=== PATIENT | female | born 1940 | race Caucasian/White ===

== ENCOUNTER → 2022-02-03 09:08 | Outpatient (BNVA) | payer MEDICARE, OTHER, SELFPAY | PROVIDERS: Family Provider Family Medicine; PCP Family Medicine; Visit Provider Nurse Practitioner Family | DX: M17.12 Unilateral primary osteoarthritis, left knee (principal); M25.562 Pain in left knee | CPT/HCPCS: 73562 ==

== ENCOUNTER → 2022-04-27 11:48 | Outpatient (BNVA) | payer BC, SELFPAY | PROVIDERS: Family Provider Family Medicine; PCP Family Medicine; Referring Provider Nurse Practitioner Family; Visit Provider Specialist | DX: M25.562 Pain in left knee (principal) | CPT/HCPCS: 73560; 73565 ==

== ENCOUNTER → 2022-05-25 12:04 | Day surgery (SDC) | payer MEDICARE, SELFPAY | PROVIDERS: PCP Nurse Practitioner Family; Visit Provider Specialist | DX: R01.1 Cardiac murmur, unspecified (principal) | CPT/HCPCS: 87077; 87086; 87186; 93005 ==

== ENCOUNTER 2022-05-27 10:48 | Outpatient (CLI) | payer MEDICARE, SELFPAY ==
--- NOTE | 2022-05-27 11:00 | USCV_ITS ---
Marsha Velazquez Age: 81 Gender: F : 1940 Exam Date: 05/27/2022 11:07 Ordering Phys: Palma Medina DO Technologist: Tammy Dias Exam Location: [facility] [place] Indication: possible systolic murmur BP: 132 / 78 HR: 88 Rhythm: Sinus Technical Quality: Adequate MEASUREMENTS (Male / Female) Normal Values 2D ECHO LV Diastolic Diameter PLAX 3.8 cm 4.2 - 5.9 / 3.9 - 5.3 cm LV Systolic Diameter PLAX 2.7 cm IVS Diastolic Thickness 1.5 cm 0.6 - 1.0 / 0.6 - 0.9 cm IVS Systolic Thickness 1.4 cm LVPW Diastolic Thickness 1.1 cm 0.6 - 1.0 / 0.6 - 0.9 cm LVPW Systolic Thickness 2.0 cm LV Ejection Fraction 2D Teich 55.6 % LV Ejection Fraction MOD 2C 81.3 % LV Ejection Fraction 2C AL 82.3 % LA Diameter 2.4 cm LA Width 4.1 cm LA Height 4.6 cm RA Width 2.4 cm RA Height 4.0 cm Aorta at Sinotubular Diameter 3.7 cm IVC Diameter 1.8 cm DOPPLER AV Peak Velocity 336.6 cm/s LVOT Peak Velocity 102.0 cm/s MV Peak Velocity 130.0 cm/s MV Area PHT 2.5 cm squared Mitral E to A Ratio 0.7 MV E' Velocity 47.0 cm/s Mitral E to MV E' Ratio 12.8 Mitral E to LV E' Lateral Ratio 9.5 Mitral E to LV E' Septal Ratio 19.7 TR Peak Velocity 221.3 cm/s TR Peak Gradient 19.6 mmHg Right Atrial Pressure 3.0 mmHg Pulmonary Artery Systolic Pressu 22.6 mmHg PV Peak Velocity 77.0 cm/s RV Acceleration Time 0.1 s FINDINGS Left Ventricle Normal left ventricular size and systolic function, EF 78 %. Moderate left ventricular hypertrophy. No regional wall motion abnormalities. Grade I/IV diastolic dysfunction (abnormal relaxation filling pattern), normal to mildly elevated filling pressures. Grade I/IV diastolic dysfunction (abnormal relaxation filling pattern), normal to mildly elevated filling pressures. Right Ventricle The right ventricle is normal in size and function. Right Atrium The right atrium is normal in size. Left Atrium Mildly increased left atrial size. Mitral Valve Trace to mild mitral valve regurgitation. Aortic Valve Mild aortic valve regurgitation. Peak velocity of 3.71 m/s with a peak gradient of 55 and a mean gradient of 28 mmHg Tricuspid Valve Mild tricuspid valve regurgitation. Pulmonic Valve Pulmonic valve not well visualized. Pericardium Normal pericardium without effusion. Aorta Normal ascending aorta dimension. IVC The inferior vena cava pulmonary and hepatic veins appear normal. CONCLUSIONS Normal left ventricular size and systolic function, EF 78 %. Moderate left ventricular hypertrophy. No regional wall motion abnormalities. Grade I/IV diastolic dysfunction (abnormal relaxation filling pattern), normal to mildly elevated filling pressures. Possibly moderate aortic valve stenosis(Peak velocity of 3.71 m/s with a peak gradient of 55 and a mean gradient of 28 mmHg.) Aortic valve area was calculated to be--- Mild aortic valve regurgitation. Mild tricuspid valve regurgitation. Trace to mild mitral valve regurgitation. There is no pericardial effusion. There are no intracardiac masses. The aortic valve area was not calculated. The Doppler study of the aortic valve needs to be repeated Dr Uzair Krueger MD FACC (Electronically Signed) Final Date: 29 May 2022 16:17 S
== END 2022-05-27 10:49 | disposition home or self-care (01) ==
LOC: RAD 10:48
PROVIDERS: PCP Nurse Practitioner Family; Visit Provider Anesthesiology
DX: R01.1 Cardiac murmur, unspecified (principal); I08.3 Combined rheumatic disorders of mitral, aortic and tricuspid valves
CPT/HCPCS: 93306

== ENCOUNTER 2022-06-02 15:43 | Observation (INO) | payer MEDICARE, SELFPAY ==
[2022-05-25 11:59] VITALS: BMI 26.9
--- NOTE | 2022-05-25 12:04 | ECG_ITS ---
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 Measurements Intervals [place] Rate: 73 P: 3 MS: 193 QRS: -9 QRSD: 107 T: 48 QT: 361 QTc: 398 Interpretive Statements SINUS RHYTHM INCOMPLETE RIGHT BUNDLE BRANCH BLOCK [90+ ms QRS DURATION, TERMINAL R IN V1/V2, 40+ ms S IN I/aVL/V4/V5/V6] No previous ECG available for comparison Electronically Signed On 05-25-2022 18:23:32 CDT by Jeff Zimmer M.D. [email or web address] unit[id number]
[2022-05-25 12:43] LABS: Basophils # 0.1 10^3/uL (0.0-0.1); Basophils % 0.9 %; Eosinophils # 0.2 10^3/uL (0.0-0.8); Eosinophils % 3.3 %; Hematocrit 34.4 % (37.0-47.0); Hemoglobin 11.7 g/dL (11.5-15.3); Lymphocytes # 1.5 10^3/uL (0.8-4.8); Lymphocytes % 27.5 %; Mean Corpuscular Hemoglobin 30.9 pg (28.0-34.0); Mean Corpuscular Volume 90.8 fl (81-99); Mean Platelet Volume 9.6 fL (7.4-10.4); Monocytes # 0.5 10^3/uL (0.2-0.9); Monocytes % 9.8 %; Neutrophils # 3.23 10^3/uL (1.8-7.7); Neutrophils % 58.3 %; Nucleated Red Blood Cells % 0 %; Platelet Count 221 10^3/cmm (130-400); Red Blood Count 3.79 10^6/uL (4.1-5.3); Red Cell Distribution Width 12.7 % (12.1-15.1); White Blood Count 5.5 10^3/uL (4.0-10.0)
[2022-05-25 13:31] LABS: Blood Urea Nitrogen 21 mg/dL (8-23); Calcium 9.3 mg/dL (8.5-10.5); Carbon Dioxide 26 mmol/L (22-29); Chloride 100 mmol/L (98-107); Creatinine Clr Calc Pharmacy 52.7142; Glucose 88 mg/dL (65-115); Osmolality Calculated 288 mOsm/kg (285-295); Sodium 138 mmol/L (136-145)
[2022-05-25 14:23] LABS: Add Urine Microscopic? YES; Bilirubin Urine Neg (Negative); Blood Urine Neg (Negative); Glucose Urine UA Norm (Normal); Ketones Urine Negative (Negative); Leukocyte Esterase Urine 1+ (Negative); Nitrate Urine Positive (Negative); Protein Urine Neg (Negative); Urine Appearance Clear (CLEAR); Urine Color Yellow (Yellow); Urobilinogen Urine Norm (Negative); pH Urine 6 (5-7)
[2022-05-25 14:24] LABS: Add Urine Culture? Yes; Bacteria Urine 3+ /hpf; Squamous Epithelial Cell Urine 0-4 /hpf (0-5)
--- NOTE | 2022-05-25 15:26 | SUR.PREOP ---
[id number] message left on rohit's phone with dr tee's office regarding pt's urinalysis results, positive for nitrates and bacteria
--- NOTE | 2022-05-25 16:14 | P.ANESASSM_ITS ---
Pre-Anesthetic Assessment Height/Weight: Height 1.68 m Weight 75.75 kg Preop Diagnosis: end stage OA Operation Date: 06/02/22 07:00 Proposed Procedures p Left Total Knee Arthroplasty 32098,M17.10(Left) - Roxana Arambula MD Familial anesthetic complications: PONV Was Beta Stacy taken within 24 hours: N/A Was Clonidine taken within 24 hours: N/A Social No alcohol and No tobacco Exam alert, oriented x 3, clear to auscultation bilaterally and regular rate & rhythm systolic ejection murmur Airway Submandibular: within normal limits Cervical ROM: Other (limited ) Mallampati: Class II Dentition: false History/ROS No significant complaints Pulmonary Sleep Apnea CV/HEM Hypertension METS > 4 Patient denies CAD, CHF and does have known murmur but patient does not etiology Denies hx of syncope or CHACKO None reported Hepatic None reported GI Gastroesophageal Reflux Disease Metabolic None reported Musc/skel None reported Neuropsych None reported Anesthetic Plan ASA status: 2 Anesthesia: Anesthesia Evaluation, Eval. for regional block (Spinal ), General and Regional (specify below) (Adductor canal block ) Other: We discussed risk and benefits of general vs spinal anesthesia including DVT risk, infection, paralysis/catastrophic nerve injury, back bruising/pain, PDPH, conversion to general in case of spinal, PONV, sore throat (sometimes severe), corneal abrasion, positioning and peripheral nerve injuries, life threatening allergic reaction, post operative ICU admission requiring prolonged intubation, stroke, heart attack, , post operative delirium and/or post operative cognitive decline, and rare incidences of recall (under general anesthesia). We discussed risk and benefits of nerve block for post op pain control including management of pain and titration of pain medications as signs/symptoms of nerve block wearing off begin to appear and/or prior bed. We discussed risk of failed nerve block, vascular injury or other vital structure injury, abscess/infection, LAST, and nerve injury. Ordered pre op echocardiogram, possible cardiology evaluation depending on TTE results (consult ordered) Patient consents to general or spinal (prefers spinal given her hx of PONV) pending TTE results. Patient would like adductor canal block . Risk of > 500 ml blood loss (7ml/kg in children): No Medications/Allergies Home Medications Medication Instructions Recorded Confirmed Last Taken Type lisinopril 20 1 tab PO DAILY 04/27/22 05/25/22 Unknown History mg-hydrochlorothiazide 25 mg tablet nitrofurantoin 100 mg PO Q12H 7 Days #14 cap 05/25/22 Unknown Rx monohydrate/macrocrystals 100 mg capsule (Macrobid) Allergies Allergy/AdvReac Type Severity Reaction Status Date / Time Sulfa (Sulfonamide Allergy rash Verified 05/25/22 08:12 Antibiotics) PFSH Anesthesia Social History Smoking and tobacco status: never smoked Alcohol intake: never Data Anesthesia : 05/25/22 12:20 05/25/22 12:20 Short CBC 05/25/22 Range/Units 12:20 WBC 5.5 (4.0-10.0) 10^3/uL Hgb 11.7 (11.5-15.3) g/dL Hct 34.4 L (37.0-47.0) % MCV 90.8 (81-99) fl Plt Count 221 (130-400) 10^3/cmm Neut % (Auto) 58.3 % Neut # (Auto) 3.23 (1.8-7.7) 10^3/uL BMP 05/25/22 12:20 Sodium 138 Potassium 4.0 Chloride 100 Carbon Dioxide 26 BUN 21 Creatinine 0.9 Glucose 88 Calcium 9.3 Urine 05/25/22 Range/Units 12:10 Urine Color Yellow (Yellow) Urine Appearance Clear (CLEAR) Urine pH 6 (5-7) Ur Specific [place] 1.010 (1.005-1.030) Urine Protein Neg (Negative) Urine Glucose (UA) Norm (Normal) Urine Ketones Negative (Negative) Urine Nitrate Positive H (Negative) Urine Bilirubin Neg (Negative) Ur Leukocyte Esterase 1+ H (Negative) Urine RBC None (0-2) /hpf Urine WBC 5-10 H (0-5) /hpf Cardiac Studies: No Data to Display
[2022-06-02] VITALS (23 sets, daily range): BP systolic 68–162; BP diastolic 58–97; PULSE 56–84; RESP 12–21; TEMP 36.1–37.2; O2SAT 93–100
--- NOTE | 2022-06-02 10:44 | P.ANESUD_ITS ---
Pre-Anesthetic Update Pre-Anesthetic Assessment: Date of Surgery/Procedure: 06/02/22 Preop Iona gnosis: Primary osteoarthritis left knee Proposed Procedure: Operation Date: 06/02/22 11:30 Proposed Procedures p Left Total Knee Arthroplasty 75134,M17.10(Left) - Roxana Arambula MD Any changes to Pre-Anesthetic Assessment?: No Last Intake: Intake Last Liquid Date 06/01/22 Last Liquid Time 19:30 Last Solid Date 06/01/22 Last Solid Time 19:30 Vitals: Temperature 98.9 F 06/02/22 10:20 Temperature Source Temporal Artery S can 06/02/22 10:20 Pulse Rate 81 06/02/22 10:20 Pulse Rhythm 06/02/22 10:21 Pulse Strength 3+ Normal 06/02/22 10:21 Respiratory Rate 18 06/02/22 10:20 Blood Pressure 162/68 06/02/22 10:20 Blood Pressure Marilin n 99 06/02/22 10:20 Pulse Oximetry 95 06/02/22 10:20 Oxygen Delivery Me thod 06/02/22 10:21 Exam: Pre-Anes Outpt Exam: alert, oriented x 3, clear to auscultation bilaterally and regular rate & rhythm Cardiac Studies: Echocardiogram 05/27/22
[2022-06-02] MEDS: sodium chloride 0.9% 1,000 ML 30 ML IV (11:02)
[2022-06-02] MEDS: acetaminophen 1,000 MG/100 ML PIGGYBACK 400 MG IV ×2 (11:03→17:47)
[2022-06-02] MEDS: CELEcoxib 200 mg Capsule 400 MG PO (11:17)
[2022-06-02 11:22] LABS: Add Urine Culture? Yes; Add Urine Microscopic? YES; Bacteria Urine 1+ /hpf; Bilirubin Urine Neg (Negative); Blood Urine Neg (Negative); Glucose Urine UA Norm (Normal); Ketones Urine Negative (Negative); Leukocyte Esterase Urine 2+ (Negative); Nitrate Urine Negative (Negative); Protein Urine Neg (Negative); RBC Urine 0-4 /hpf (0-2); Squamous Epithelial Cell Urine 0-4 /hpf (0-5); Urine Appearance Clear (CLEAR); Urine Color Yellow (Yellow); Urobilinogen Urine Norm (Negative); pH Urine 7 (5-7)
--- NOTE | 2022-06-02 12:01 | P.HPUD_ITS ---
Surgery/Procedure H&P Update DATE OF PROCEDURE: June 02, 2022 DATE H&P PERFORMED: 05/25/22 H&P UPDATE INFORMATION: I have reviewed H&P completed within last 30 days, I have examined patient prior to procedure, No changes to prior documentation and H&[place] is [place] [facility] [place] date indicated PREOP DIAGNOSIS: Primary osteoarthritis left knee PLANNED PROCEDURE: Operation Date: 06/02/22 11:30 Proposed Procedures p Left Total Knee Arthroplasty 16645,M17.10(Left) - Roxana Arambula MD Related Problem List Diagnoses (1) Primary osteoarthritis of left knee: (2) Valgus deformity, not elsewhere classified, left knee:
[2022-06-02] MEDS: ceFAZolin 2,000 MG in sodium chloride 0.9% (plus) 50 ML 100 MG IV ×2 (12:04→20:04)
--- NOTE | 2022-06-02 12:49 | ANES.PROC ---
Anesthesia Procedures Procedure/Date: 06/02/22 Nerve Block ^: Nerve Block 1: Main Anesthesia: spinal anesthesia block Time Out Performed: Yes Consent: requested by attending/covering physician, from patient, risks and benefits reviewed and patient agrees to proceed Nerve block location: adductor canal (left) Anesthesia monitors applied: pulse oximetry, EKG, BP cuff and oxygen Nerve block position: supine Anesthetic Used: ropivicaine 0.5% Amount of anesthesia used (mL): 20 Ultrasound used to: recognize landmarks Nerve Stimulator Used?: No Interscalene/Femoral BLK: 4 stimuplex 21 g needle used for position and inplane approach Injection: neg aspiration of heme Patient Tolerated Procedure: well Complications: none
[2022-06-02] MEDS: ceFAZolin 1,000 mg SDV 1000 MG IRRIGATION ×2 (13:04)
[2022-06-02] MEDS: vancomycin 1,000 MG SDV 1000 MG XX (13:05)
[2022-06-02] MEDS: tranexamic acid 1,000 mg/10mL SDV 1000 MG IV (14:12)
--- NOTE | 2022-06-02 14:50 | XRR_ITS ---
PROCEDURE INFORMATION: Exam: XR Left Knee Exam date and time: 06/02/2022 3:06 PM Age: 81 years old Clinical indication: Device placement; Joint replacement hardware; Prior surgery; Surgery date: Post-operative (0-2 days); Surgery type: Status post left total knee arthroplasty TECHNIQUE: Imaging protocol: Radiologic exam of the Left knee. Views: 1 or 2 views. COMPARISON: CR (KNEE AP, KNEE, KNEE AP) 04/27/2022 11:53 AM FINDINGS: Bones/joints: Sequela of recently placed left total knee arthroplasty in expected positioning. Soft tissues: Soft tissue swelling and gas along with surgical humphrey along the anterior knee consistent with recent surgical procedure. XR/XR knee LT 1-2V 99514 IMPRESSION: Sequela of recently placed left total knee arthroplasty in expected positioning.
--- NOTE | 2022-06-02 15:16 | PM.OP ---
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 Procedure done: Left total knee arthroplasty Implants: The Renée total knee system with a size 4 triathlon beaded posterior stabilized femur left, a triathlon titanium tibial component size 5 beaded, a triathlon X3 posterior stabilized tibial bearing insert size 5 X 13 mm and a beaded triathlon titanium asymmetric patella size 32 x 10 mm Pathology: none sent Surgeon: Roxana Arambula Electron Microprobe Operator: [facility] operating room technicians Anesthesia: MAC (With spinal, ASA 2) Estimated blood loss (mL): 25 Tourniquet time (min): 103 (At 250 mmHg) IV fluids (mL): 800 Urine output (mL): 150 Complications: None Findings: Severe valgus deformity with lateral bone loss along the lateral tibial plateau. Complete denudement of cartilage. Condition: stable Disposition: PACU (Then to floor for postoperative rehabilitation and pain management) Brief History: Patient presents today for same-day surgery in the form of left total knee arthroplasty to address her chronic left knee pain with severe valgus deformity. Patient states that her pain has been present for approximately one year. She denies any injury. Patient rates pain 8/10. She says that the pain is steadily getting worse. Patient could not describe what kind of pain they have. She is excited to discuss plans for left total knee arthroplasty.? Surgery date is June 02. Patient claims knee is painful all the time, but it is most painful during the night when she is laying down. Patient says that it is hard to turn her leg in a way that is comfortable to sleep. She says that the pain radiates down the leg. Patient uses aspercreme spray to ease the pain and says it does help, but she is wanting more relief.? Procedure: The patient was brought to the operating theater, and after undergoing adequate spinal anesthesia supplemented with adductor canal block and MAC, ASA 2, the left lower extremity was prepped with Dura-Prep and draped in usual fashion following placement of a tourniquet high on the leg. The leg was then draped free. Following prepping and draping, the leg was exsanguinated, and the tourniquet was elevated to 250 mmHg for a total tourniquet time of 103 minutes.? Prior to elevation of the tourniquet, but following exposure of the site of surgery, a surgical pause was performed. At the time of the surgical pause, we confirmed the site and side of surgery. Additionally, we confirmed the appropriate and timely administration of preoperative antibiotics, Ancef 2 g and Transexemic acid 1 g.? The availability of equipment was confirmed, and the patient's identity was verbalized as well.? An additional transexemic acid 1 g was given at the end of the surgical procedure as well Following the surgical pause, an incision was made centering over the patella continuing proximally and distally as necessary to allow access to the knee joint. Dissection continued through skin and soft tissues using a scalpel. Hemostasis was obtained using electrocautery. The skin incision was followed by a median parapatellar arthrotomy. The leg was extended and the patella was everted. Following this, the leg was returned to flexed position. Distal femur was exposed, and a drill hole was made in this for placement of the distal femoral jig. The distal femoral jig was set at 5? of valgus. The distal femoral cutting block was then placed in appropriate position, and an abdoul wing was used to confirm an appropriate amount of distal femur would be resected.? The distal femoral resection was accomplished with 8 mm of bone being resected distally.? After the distal femoral resection was accomplished, the femur was measured, and it measured a size 5.? Medial lateral dimension measured a size 4.? We then transitioned 1.5 mm anteriorly to allow for the appropriate medial lateral fit. Following this, the size 4 femoral cutting block was placed in position, and we were then able to accomplish the anterior, posterior and chamfer cuts. This jig was then removed, and the notch guide was placed in position. With the notch guide in appropriate position, the notch was excised including resection of the anterior and posterior cruciate ligaments. This notch was to allow for the posterior stabilized femoral component. At this point, the femur was prepared and attention was directed to the proximal tibia.? The posterior knee retractor was placed along with medial and lateral retractors. Further resection of the menisci was accomplished as we had better visualization. A complete meniscectomy was performed both medially and laterally with care being taken to protect the popliteus. Retractors were then placed so that the proximal tibia was well visualized. A drill hole was then made in the tibia for placement of the intramedullary guide. This guide was placed so that approximately 2 mm of bone would be resected from the deficient lateral tibial plateau.? This resulted in 4 to 6 mm resection from the nondeficient medial tibial plateau The intramedullary guide was utilized supplemented with an extramedullary guide to assure appropriate alignment for the proximal tibial resection. The proximal tibial jig was then evaluated, pinned in position, and the proximal tibial resection was accomplished without difficulty. The jig was removed, and the proximal tibia was measured. It measured a size 5. We then attempted a trial reduction with a size 5 by 9 mm.? Subsequently, the insert was increased to a size 5 x 11 mm then to a size 5 x 13 mm insert.? The femoral component was placed in position for the trial reduction, and the knee was placed through range of motion.? With this, there was appropriate patellar tracking. Extension was noted to be full as well.? With had excellent varus valgus alignment.? The knee was stable to varus valgus stress as well.? Therefore, this was the chosen component.? There was full extension and flexion without lift off and the rotation of the tibia was marked.? Alignment was checked from the hip to the ankle, and this was noted to be appropriate as well. Attention was then directed to the patella. The patella was measured with a caliper.? We resected sufficient patella to leave approximately 14 mm of patella remaining.? Measurements of the patella then indicated that a size asymmetric 32 mm x 10 mm was the appropriate patellar size. We then placed the jig to drill for the 3 pegs of the press-fit patella, and these drill holes were made without incident. A trial patella was then placed, and the knee was placed through range of motion. The patella was noted to track nicely without evidence of subluxation.? The femur was prepared for a press-fit femur by drilling 2 holes for the femoral pegs.? All trial components were subsequently removed. The tibial tray was then pinned into position, and we broached the tibia for the stem of the tibial component.? Subsequently, 4 drill holes were made for placement of the press-fit tibia.? This was accomplished without difficulty. Care was taken to assure appropriate rotation of the tibia as well as appropriate position on the proximal tibia. The tibial tray was completely seated on the proximal tibia. Following broaching, the tibial guide was removed, and all surfaces were copiously irrigated. The surfaces were then dried and a bone plug was placed into the distal femur.? Exparel was also subsequently injected. The Tritanium tibia was impacted into position.? The beaded femur was then impacted into position in a cementless fashion. The tibial insert was placed. The patella was pressed into position with a patellar clamp.? The knee was then copiously irrigated with betadine and saline and suctioned dry. Attention was then directed to closure. Closure was accomplished with 0 Vicryl in the fascial tissues.? Following this, a 2-0 Monocryl was used in the subcutaneous tissues, and the skin was closed with skin humphrey.? Care was taken to assure an excellent subcutaneous as well as skin closure.? A sterile dressing was then placed consisting of Dermabond Prineo, Telfa, OpSite, sterile soft roll including over the foot, and an Winston wrap. The patient was returned the Recovery Room in a satisfactory condition. X-rays were obtained and reviewed there.? The patient will be discharged to the floor for postoperative rehabilitation and pain management. Related Problem List Diagnoses (1) Primary osteoarthritis of left knee: (2) Valgus deformity, not elsewhere classified, left knee:
--- NOTE | 2022-06-02 16:19 | ANE.PACU2 ---
Inpatient post-anesthesia follow up: Airway intact: Yes Vital signs: Temperature 97.0 F Pulse Rate 72 Respiratory Rate 21 Blood Pressure 144/72 Pulse Oximetry 94 Oxygen Delivery Me thod Room Air Oxygen Flow Rate Fraction of Inspir ed Oxygen Hydration adequate: Yes Nausea and vomiting: No Pain level: 1 Mental status: Baseline
[2022-06-02] MEDS: chlorhexidine gluconate 0.12% Btl 473 mL 30 ML MUCOUS MEM ×2 (17:47→20:04)
[2022-06-02] MEDS: mupirocin oint 22 gm 1 APPLIC NASAL (17:49)
[2022-06-02] MEDS: ondansetron 2 mg/ML SDV 2 mL 4 MG IVP (18:59)
[2022-06-02] MEDS: oxyCODONE 5 mg IR Tab/Cap PO (21:06)
[2022-06-02 21:27] LABS: Basophils % 0.4 %; Eosinophils % 0.3 %; Hematocrit 32.8 % (37.0-47.0); Hemoglobin 10.3 g/dL (11.5-15.3); Lymphocytes # 0.6 10^3/uL (0.8-4.8); Lymphocytes % 6.5 %; Mean Corpuscular HGB Conc 31.4 g/dL (30.0-36.0); Mean Corpuscular Hemoglobin 31.9 pg (28.0-34.0); Mean Corpuscular Volume 101.5 fl (81-99); Mean Platelet Volume 9.1 fL (7.4-10.4); Monocytes # 0.8 10^3/uL (0.2-0.9); Monocytes % 8.7 %; Neutrophils # 7.49 10^3/uL (1.8-7.7); Neutrophils % 83.7 %; Nucleated Red Blood Cells % 0 %; Platelet Count 181 10^3/cmm (130-400); Red Blood Count 3.23 10^6/uL (4.1-5.3); Red Cell Distribution Width 12.5 % (12.1-15.1)
[2022-06-02 21:44] LABS: Blood Urea Nitrogen 25 mg/dL (8-23); Calcium 8.2 mg/dL (8.5-10.5); Carbon Dioxide 22 mmol/L (22-29); Chloride 99 mmol/L (98-107); Glucose 130 mg/dL (65-115); Osmolality Calculated 282 mOsm/kg (285-295); Sodium 133 mmol/L (136-145)
[2022-06-02 21:54] LABS: Anion Gap 15.8 (5-19); Potassium 3.8 mmol/L (3.5-5.1)
[2022-06-03] VITALS: BP 130/68; PULSE 80; RESP 18; TEMP 36.8; O2SAT 94
[2022-06-03] MEDS: acetaminophen 1,000 MG/100 ML PIGGYBACK 400 MG IV ×2 (00:06→06:34)
[2022-06-03] MEDS: ceFAZolin 2,000 MG in sodium chloride 0.9% (plus) 50 ML 100 MG IV (03:26)
[2022-06-03 03:33] VITALS: RESP 16
[2022-06-03] MEDS: oxyCODONE 5 mg IR Tab/Cap PO (03:33)
[2022-06-03 04:40] VITALS: BP 146/69; PULSE 64; RESP 18; TEMP 36.7; O2SAT 96
[2022-06-03 07:08] VITALS: BP 132/69; PULSE 73; RESP 18; TEMP 36.7; O2SAT 95
[2022-06-03 09:18] VITALS: PULSE 92; RESP 18; O2SAT 97
[2022-06-03] MEDS: calcium carbonate 500 mg Chew Tablet 1000 MG PO (09:53)
[2022-06-03] MEDS: iron polysaccharide complex 150 mg Capsule PO (09:54)
[2022-06-03] MEDS: aspirin 325 mg EC Tablet PO (09:54)
[2022-06-03] MEDS: multivitamin therapeutic Tablet 1 TAB PO (09:54)
[2022-06-03] MEDS: nitrofurantoin SR (BID) 100 mg Capsule PO (09:56)
[2022-06-03] MEDS: hydroCHLOROthiazide 25 mg Tablet 20 MG PO (09:56)
[2022-06-03] MEDS: cholecalciferol (vitamin D3) 1,000 unit Tablet 1000 UNIT PO (09:57)
[2022-06-03] MEDS: lisinopril 20 mg Tablet PO (09:58)
[2022-06-03] MEDS: sennosides-docusate Tablet 2 TAB PO (09:58)
[2022-06-03] MEDS: chlorhexidine gluconate 0.12% Btl 473 mL 30 ML MUCOUS MEM (09:59)
[2022-06-03] MEDS: mupirocin oint 22 gm 1 APPLIC NASAL (09:59)
[2022-06-03] MEDS: ceFAZolin 2,000 MG in sodium chloride 0.9% (plus) 50 ML 200 MG IV (10:02)
[2022-06-03 11:38] VITALS: BP 144/60; PULSE 74; RESP 19; TEMP 36.4; O2SAT 98
--- NOTE | 2022-06-03 13:44 | P.DS_ITS ---
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 Procedure done: Left total knee arthroplasty Implants: The [employer] total knee system with a size 4 triathlon beaded posterior stabilized femur left, a triathlon titanium tibial component size 5 beaded, a triathlon X3 posterior stabilized tibial bearing insert size 5 X 13 mm and a beaded triathlon titanium asymmetric patella size 32 x 10 mm (2) Primary osteoarthritis of left knee: Status: Acute (3) Valgus deformity, not elsewhere classified, left knee: Status: Acute Reason for Visit Reason for Visit: Brief History: Patient presents today for same-day surgery in the form of left total knee arthroplasty to address her chronic left knee pain with severe valgus deformity. Patient states that her pain has been present for approximately one year. She denies any injury. Patient rates pain 8/10. She says that the pain is steadily getting worse. Patient could not describe what kind of pain they have. She is excited to discuss plans for left total knee arthroplasty.? Surgery date is June 02. Patient claims knee is painful all the time, but it is most painful during the night when she is laying down. Patient says that it is hard to turn her leg in a way that is comfortable to sleep. She says that the pain radiates down the leg. Patient uses aspercreme spray to ease the pain and says it does help, but she is wanting more relief.? Hospital Course Hospital Course Patient was admitted yesterday for same-day total knee arthroplasty. She did well following the surgical procedure. She has had physical therapy and did well with this as well. She is up in a chair. She had slight nausea, but this had resolved at the time of my visit. Therapy and nursing felt she was safe for discharge to home. Her family was comfortable with this as well. Dressing was dry and intact. There was no evidence of DVT. The patient will be discharged home with home health. Physical Exam Const: COMMON NORMALS: no acute distress, average body habitus, patient oriented x3 and alert GENERAL APPEARANCE: cooperative and comfortable ORIENTATION/CONSCIOUSNESS: Yes awake HENMT: COMMON NORMALS: normocephalic and atraumatic HEAD & SCALP: normocephalic and atraumatic Eye: GENERAL EYE: appearance normal, both eyes and all related structures Chest: COMMONS NORMALS: normal inspection of the chest Resp: COMMON NORMALS: normal respiratory effort EFFORT & INSPECTION: Yes able to speak in complete sentences and Yes symmetric chest movement Extremity: LEFT LOWER EXTREMITY: Yes knee joint (Valgus deformity and was nicely corrected.) Left knee: Yes inspection (Slight ecchymosis without significant swelling) and Yes neurovascular exam (Intact distally with no evidence of DVT.) Neuro: COMMON NORMALS: patient oriented x3 SENSORIUM/ORIENTATION: Yes alert Psych: COMMON NORMALS: mental status grossly normal APPEARANCE: Yes grossly normal ATTITUDE: Yes calm and Yes engaged ATTENTION/CONCENTRATION: Yes attention grossly intact Skin: COMMON NORMALS: no rashes or lesions noted GENERAL SKIN EXAM: no rashes or lesions noted Urinary Catheter Management: Randall Latex: Cath Placed During This Visit: yes, but has since been removed by the nurse Reason for Continuing Indwelling Catheter: Decision to DC Catheter Urinary Catheter Date of Insertion: 06/02/22 Urinary Catheter Time of Insertion: 12:25 Date Urinary Catheter Removed: 06/03/22 Time Urinary Catheter Discontinued: 10:20 Discharge Data Studies Completed and Pending Completed Studies During Hospitalization Category Date Time Status XR knee LT 1-2V [id number] Urgent Exams 06/02/22 14:50 Completed Pending at discharge Category Date Time Status Urine Culture Routine Lab 06/02/22 10:30 Results Radiology Impressions Knee X-Ray 06/02/22 14:50 IMPRESSION: Sequela of recently placed left total knee arthroplasty in expected positioning. Laboratory Results WBC 9.0 10^3/uL (4.0-10.0) 06/02/22 21:20 RBC 3.23 10^6/uL (4.1-5.3) L 06/02/22 21:20 Hgb 10.3 g/dL (11.5-15.3) L 06/02/22 21:20 Hct 32.8 % (37.0-47.0) L 06/02/22 21:20 MCV 101.5 fl (81-99) H 06/02/22 21:20 MCH 31.9 pg (28.0-34.0) 06/02/22 21:20 MCHC 31.4 g/dL (30.0-36.0) 06/02/22 21:20 RDW 12.5 % (12.1-15.1) 06/02/22 21:20 Plt Count 181 10^3/cmm (130-400) 06/02/22 21:20 MPV 9.1 fL (7.4-10.4) 06/02/22 21:20 Neut % (Auto) 83.7 % 06/02/22 21:20 Lymph % (Auto) 6.5 % 06/02/22 21:20 [place] % (Auto) 8.7 % 06/02/22 21:20 Eos % (Auto) 0.3 % 06/02/22 21:20 Baso % (Auto) 0.4 % 06/02/22 21:20 Neut # (Auto) 7.49 10^3/uL (1.8-7.7) 06/02/22 21:20 Lymph # (Auto) 0.6 10^3/uL (0.8-4.8) L 06/02/22 21:20 [place] # (Auto) 0.8 10^3/uL (0.2-0.9) 06/02/22 21:20 Eos # (Auto) 0.0 10^3/uL (0.0-0.8) 06/02/22 21:20 Baso # (Auto) 0.0 10^3/uL (0.0-0.1) 06/02/22 21:20 Nucleated RBC % (auto) 0 % 06/02/22 21:20 Nucleated RBCs # 0.0 /100WBC 06/02/22 21:20 Sodium 133 mmol/L (136-145) L 06/02/22 21:20 Potassium 3.8 mmol/L (3.5-5.1) 06/02/22 21:20 Chloride 99 mmol/L (98-107) 06/02/22 21:20 Carbon Dioxide 22 mmol/L (22-29) 06/02/22 21:20 Anion Gap 15.8 (5-19) 06/02/22 21:20 BUN 25 mg/dL (8-23) H 06/02/22 21:20 Creatinine 0.8 mg/dL (0.5-0.9) 06/02/22 21:20 GFR Calculation Not Reportable 06/02/22 21:20 Glucose 130 mg/dL (65-115) H 06/02/22 21:20 Calculated Osmolality 282 mOsm/kg (285-295) L 06/02/22 21:20 Calcium 8.2 mg/dL (8.5-10.5) L 06/02/22 21:20 Urine Color Yellow (Yellow) 06/02/22 10:30 Urine Appearance Clear (CLEAR) 06/02/22 10:30 Urine pH 7 (5-7) 06/02/22 10:30 Ur Specific [place] 1.010 (1.005-1.030) 06/02/22 10:30 Urine Protein Neg (Negative) 06/02/22 10:30 Urine Glucose (UA) Norm (Normal) 06/02/22 10:30 Urine Ketones Negative (Negative) 06/02/22 10:30 Urine Blood Neg (Negative) 06/02/22 10:30 Urine Nitrate Negative (Negative) 06/02/22 10:30 Urine Bilirubin Neg (Negative) 06/02/22 10:30 Urine Urobilinogen Norm mg/dL (Negative) 06/02/22 10:30 Ur Leukocyte Esterase 2+ (Negative) H 06/02/22 10:30 Urine RBC 0-4 /hpf (0-2) H 06/02/22 10:30 Urine WBC 5-10 /hpf (0-5) H 06/02/22 10:30 Ur Squamous Epith Cells 0-4 /hpf (0-5) H 06/02/22 10:30 Amorphous Sediment Not Reportable 06/02/22 10:30 Urine Bacteria 1+ /hpf (NONE) H 06/02/22 10:30 Vitals Last Vital Signs Temp 97.5 F L 06/03/22 11:38 Pulse 74 06/03/22 11:38 Resp 19 H 06/03/22 11:38 BP 144/60 06/03/22 11:38 Pulse Ox 98 06/03/22 11:38 Discharge Plan Discharge Patient Disposition: Home Health Service Condition: Stable Prescriptions: New acetaminophen 500 mg Tablet 1,000 mg PO Q8H 15 Days Qty: 90 0RF aspirin 325 mg Tablet,Delayed Release (Dr/Ec) 325 mg PO DAILY 30 Days Qty: 30 0RF oxycodone 5 mg Tablet 5 mg PO Q4H PRN (Reason: Moderate Pain) 7 Days Qty: 30 0RF Continued lisinopril-hydrochlorothiazide 20-25 mg tablet 1 tab PO DAILY 0RF nitrofurantoin monohyd/m-cryst [Macrobid] 100 mg capsule 100 mg PO Q12H 7 Days Qty: 14 0RF Rx Instructions: must administer with a meal/food Discharge Orders: Discharge Order (Routine); Ordered 06/03/22 Ordered By: Roxana Arambula Other Ambulatory Orders: DME: Walker (Order) Location: None Selected Ordered By: Roxana Arambula Referrals: Roxana Arambula MD [Physician] - 06/15/22 8:00 am Discharge Diet: Advance as tolerated and Usual diet Discharge Activity: Increase activity as tolerated, Limit activity as instructed, Use walker/crutches as instructed and As per PT/OT instructions Patient Instructions: Oxycodone/Acetaminophen (By mouth), Aspirin (By mouth), Knee Replacement (GEN), Opioid Safety Activity Restrictions/Additional Instructions: Ice and elevate left knee. Range of motion, gait training, and strengthening per home physical therapy. Discharge Attestations Time Spent in Discharge Care*: greater than 30 min Specific Discharge Activities: educating patient, educating and/or supporting family/caregiver, documenting/other paperwork and evaluating patient/reviewing data Quality Metrics Clinical Quality Measures [ No reported AMI, CVA or VTE this stay] Coding Level of Care Code Acute [facility] note Diagnoses Primary osteoarthritis of left knee M17.12 Valgus deformity, not elsewhere classified, left knee M21.062 Status post total left knee replacement not using cement Z96.652
== END 2022-06-03 15:15 | disposition home health service (06) ==
LOC: MEDSURG 16:14
PROVIDERS: Admitting Provider Specialist; PCP Nurse Practitioner Family; Visit Provider Specialist
PROC: (CPT 27447; principal; 2022-06-02 11:30)
DX: M17.12 Unilateral primary osteoarthritis, left knee (principal); K21.9 Gastro-esophageal reflux disease without esophagitis; M21.062 Valgus deformity, not elsewhere classified, left knee; R01.1 Cardiac murmur, unspecified
CPT/HCPCS: 27447; 36415; 51702; 73560; 80048; 81001; 85025; 87086; 97110; 97116; 97161; 97165; 97530; C1713; C1776; C9290; G0378; J0690; J2405; J2704; J2795; J3370; J3490; J7030

== ENCOUNTER → 2022-06-15 12:31 | Outpatient (BNVA) | payer MEDICARE, SELFPAY | PROVIDERS: PCP Nurse Practitioner Family; Visit Provider Nurse Practitioner Family | DX: Z96.652 Presence of left artificial knee joint (principal) | CPT/HCPCS: 73560; 73565; 99024 ==

== ENCOUNTER → 2022-07-16 13:33 | Outpatient (BNVA) | payer MEDICARE, SELFPAY | PROVIDERS: PCP Nurse Practitioner Family; Visit Provider Nurse Practitioner Family | DX: Z96.652 Presence of left artificial knee joint (principal) | CPT/HCPCS: 73560; 73565; 99024 ==

== ENCOUNTER 2022-08-29 17:30 | Emergency (ER) | payer MEDICARE, SELFPAY ==
[2022-08-29 17:33] VITALS: BP 137/75; PULSE 108; RESP 18; TEMP 36.6; O2SAT 96; BMI 25.0
--- NOTE | 2022-08-29 17:37 | ECG_ITS ---
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 Measurements Intervals [place] Rate: 102 P: 25 MA: 177 QRS: -14 QRSD: 106 T: 54 QT: 320 QTc: 419 Interpretive Statements SINUS TACHYCARDIA INCOMPLETE RIGHT BUNDLE BRANCH BLOCK [90+ ms QRS DURATION, TERMINAL R IN V1/V2, 40+ ms S IN I/aVL/V4/V5/V6] ABNORMAL RHYTHM ECG Compared to ECG 05/25/2022 12:17:25 Sinus rhythm no longer present Electronically Signed On 08-30-2022 22:00:20 CDT by Jeff Zimmer M.D. [email or web address]
--- NOTE | 2022-08-29 17:43 | XRR_ITS ---
PROCEDURE INFORMATION: Exam: XR Chest Exam date and time: 08/29/2022 6:27 PM Age: 82 years old Clinical indication: Pain; Chest pressure; Additional info: Chest pain TECHNIQUE: Imaging protocol: Radiologic exam of the chest. Views: 1 view. COMPARISON: No relevant prior studies available. FINDINGS: Lungs: Emphysematous changes suspected. Pleural spaces: Unremarkable. No pleural effusion. No pneumothorax. Heart/Mediastinum: Cardiomegaly. Bones/joints: Unremarkable. XR/XR chest 1V portable [id number] IMPRESSION: 1. Negative for infiltrate 2. Emphysematous changes suspected. 3. Cardiomegaly.
--- NOTE | 2022-08-29 18:24 | USR_ITS ---
PROCEDURE INFORMATION: Exam: US Duplex Left Lower Extremity Veins, Limited Exam date and time: 08/29/2022 6:39 PM Age: 82 years old Clinical indication: Edema, localized; Lower extremity, left; Patient HX: Left knee replacement in June 05. ; Additional info: Swelling TECHNIQUE: Imaging protocol: Real-time Duplex ultrasound of the Left Lower Extremity with 2-D hankins scale, color Doppler flow and spectral waveform analysis with image documentation. Limited exam focused on the left lower extremity veins. COMPARISON: CR XR knees AP WB w LT lmt ORTH 07/16/2022 1:38 PM FINDINGS: Left deep veins: Unremarkable. The common femoral, femoral, proximal profunda femoral and popliteal veins are patent without thrombus. Normal Doppler waveforms. Normal compressibility and/or augmentation response. Left superficial veins: Unremarkable. Saphenofemoral junction is patent without thrombus. Soft tissues: Small amount of subcutaneous edema in the lower extremity. US/CV venous duplex [facility] [id number] IMPRESSION: No evidence of deep vein thrombosis.
--- NOTE | 2022-08-29 18:26 | ED_ITS ---
HPI - Chest Pain General: Chief Complaint: Chest Pain Stated Complaint: Chest Pain Time Seen by Provider: 08/29/22 18:16 Source: patient Mode of arrival: ambulatory Limitations: no limitations History of Present Illness: 82-year-old female who states she has been having chest pain since Wednesday. She states the pain is been intermittent in nature has been a dull aching pain. She denies any radiation of the pain. She denies any shortness of breath denies any nausea denies any worsening improving factors. Associated symptoms: Deny abdominal pain, dyspnea, fever(s), nausea or vomiting Review of Systems Const: Denies: fever(s), chills, body aches or change in appetite Eyes: Denies: blurry vision or eye discomfort ENMT: Denies: throat pain or dental pain Card: Reports: chest pain Resp: Denies: dyspnea GI: Denies: abdominal pain, nausea, vomiting or diarrhea : Denies: dysuria Musc: Denies: neck pain or back pain Skin/Breast: Denies: rash Neuro: Denies: headache(s) Psych: Denies: depression Hector/Lymph: Denies: easy bruising All/Imm: Denies: urticaria PFSH ED PFSH: Medical History Hypertension Social History Smoking and tobacco status: never smoked Alcohol intake: never Physical Exam Const: COMMON NORMALS: no acute distress, patient oriented x3 and healthy appearing HENMT: COMMON NORMALS: normocephalic and atraumatic HEAD & SCALP: normocephalic and atraumatic Eye: COMMON NORMALS: Equal, round and reactive pupils present and EOMs intact bilaterally PUPIL: Yes Equal, round and reactive pupils present Neck/C-Spine: COMMON NORMALS: full ROM and supple Chest: COMMONS NORMALS: normal inspection of the chest and normal palpation of entire chest wall Resp: COMMON NORMALS: normal respiratory effort, No retractions, No use of accessory muscles and clear to auscultation bilaterally AUSCULTATION: clear to auscultation bilaterally Cardio: COMMON NORMALS: regular rate, regular rhythm and No murmurs present (Cardio) RATE: regular rate RHYTHM: regular rhythm GI: COMMON NORMALS: Normal to inspection, nondistended, normoactive bowel sounds present, Soft to palpation, non-tender and no masses PALPATION: Yes Soft to palpation Extremity: OTHER: swelling to left lower leg/ no calf tenderness Neuro: COMMON NORMALS: patient oriented x3, moves all extremities and no focal motor deficits Psych: COMMON NORMALS: mental status grossly normal, Normal thought process present and cooperative THOUGHT PROCESS: Normal thought process present Skin: COMMON NORMALS: no rashes or lesions noted and no wounds GENERAL SKIN EXAM: no rashes or lesions noted Course Vital Signs: Vital signs: Vital Signs Temperature 98 F 08/29/22 17:33 Pulse Rate 108 H 08/29/22 17:33 Respiratory Rate 18 08/29/22 17:33 Blood Pressure 137/75 08/29/22 17:33 Pulse Oximetry 96 08/29/22 17:33 Oxygen Delivery Me thod 08/29/22 17:33 MDM - Chest Pain Medical Decision Making Patient presents for chest pains going on for days she is well-appearing here she is pain-free currently her troponins are normal no signs of acute coronary syndrome she is to follow-up with PCP in 2 to 4 days and return if worsening she understands agrees to plan. Lab Data : 08/29/22 18:58 08/29/22 18:58 Radiology Impressions Chest X-Ray 08/29/22 17:43 IMPRESSION: 1. Negative for infiltrate 2. Emphysematous changes suspected. 3. Cardiomegaly. Venous Duplex 08/29/22 18:24 IMPRESSION: No evidence of deep vein thrombosis. Laboratory Results WBC 5.9 10^3/uL (4.0-10.0) 08/29/22 18:58 RBC 3.26 10^6/uL (4.1-5.3) L 08/29/22 18:58 Hgb 10.2 g/dL (11.5-15.3) L 08/29/22 18:58 Hct 31.5 % (37.0-47.0) L 08/29/22 18:58 MCV 96.6 fl (81-99) 08/29/22 18:58 MCH 31.3 pg (28.0-34.0) 08/29/22 18:58 MCHC 32.4 g/dL (30.0-36.0) 08/29/22 18:58 RDW 13.5 % (12.1-15.1) 08/29/22 18:58 Plt Count 273 10^3/cmm (130-400) 08/29/22 18:58 MPV 9.2 fL (7.4-10.4) 08/29/22 18:58 Neut % (Auto) 59.7 % 08/29/22 18:58 Lymph % (Auto) 21.6 % 08/29/22 18:58 [place] % (Auto) 10.4 % 08/29/22 18:58 Eos % (Auto) 7.0 % 08/29/22 18:58 Baso % (Auto) 1.0 % 08/29/22 18:58 Neut # (Auto) 3.50 10^3/uL (1.8-7.7) 08/29/22 18:58 Lymph # (Auto) 1.3 10^3/uL (0.8-4.8) 08/29/22 18:58 [place] # (Auto) 0.6 10^3/uL (0.2-0.9) 08/29/22 18:58 Eos # (Auto) 0.4 10^3/uL (0.0-0.8) 08/29/22 18:58 Baso # (Auto) 0.1 10^3/uL (0.0-0.1) 08/29/22 18:58 Nucleated RBC % (auto) 0 % 08/29/22 18:58 Nucleated RBCs # 0.0 /100WBC 08/29/22 18:58 Sodium 128 mmol/L (136-145) L 08/29/22 18:58 Potassium 3.8 mmol/L (3.5-5.1) 08/29/22 18:58 Chloride 92 mmol/L (98-107) L 08/29/22 18:58 Carbon Dioxide 27 mmol/L (22-29) 08/29/22 18:58 Anion Gap 12.8 (5-19) 08/29/22 18:58 BUN 36 mg/dL (8-23) H 08/29/22 18:58 Creatinine 1.0 mg/dL (0.5-0.9) H 08/29/22 18:58 GFR Calculation Not Reportable 08/29/22 18:58 Glucose 94 mg/dL (65-115) 08/29/22 18:58 Calculated Osmolality 274 mOsm/kg (285-295) L 08/29/22 18:58 Calcium 9.2 mg/dL (8.5-10.5) 08/29/22 18:58 Total Bilirubin 0.2 mg/dL (0.15-1.2) 08/29/22 18:58 AST 23 U/L (0-32) 08/29/22 18:58 ALT 14 U/L (0-33) 08/29/22 18:58 Alkaline Phosphatase 153 U/L (35-105) H 08/29/22 18:58 Troponin T Baseline 22 ng/L (0-10) H 08/29/22 18:58 Troponin T 120 Minute 19.96 ng/L (0-10) H 08/29/22 20:45 Delta Troponin T -2.04 ABS# (0-10) L 08/29/22 20:45 NT-Pro-B Natriuret Pep 192 pg/mL (0-450) 08/29/22 18:58 Total Protein 6.8 g/dL (6.6-8.7) 08/29/22 18:58 Albumin 4.0 g/dL (3.5-5.2) 08/29/22 18:58 Globulin 2.8 g/dL (1.3-4.6) 08/29/22 18:58 EKG Data EKG 1: I personally reviewed and interpreted this EKG as follows: EKG interpretation date: 08/29/22 EKG interpretation time: 17:37 Interpretation: sinus tach hr [address] or t wave abnormalities qrs 106 qtc 379 EKG 2: I personally reviewed and interpreted this EKG as follows: EKG interpretation date: 08/29/22 EKG interpretation time: 19:52 Interpretation: nsr hr [address] or t wave abnormalities qrs 110 qtc 404 Discharge Plan Discharge Patient Disposition: Home Clinical Impression: Chest pain Condition: Stable Prescriptions: No Action lisinopril-hydrochlorothiazide 20-25 mg tablet 1 tab PO DAILY nitrofurantoin monohyd/m-cryst [Macrobid] 100 mg capsule 100 mg PO Q12H 7 Days Qty: 14 0RF Rx Instructions: must administer with a meal/food tramadol 50 mg tablet See Rx Instructions PO Q8H PRN (Reason: pain) Qty: 60 0RF Rx Instructions: 1-2 tab PO every 8 hours PRN; Discharge Orders: Discharge ED (Routine); Ordered 08/29/22 Ordered By: Yuri Aldana Referrals: Lia Quiñonez [Primary Care Provider] - 1-3 days Discharge Diet: Advance as tolerated Discharge Activity: Resume usual activity Patient Instructions: Chest Pain (ED) Coding Level of Care Code ED Conventions Reservationist for Chg Fwd Exam Comprehensive
[2022-08-29 19:05] LABS: Basophils # 0.1 10^3/uL (0.0-0.1); Eosinophils # 0.4 10^3/uL (0.0-0.8); Hematocrit 31.5 % (37.0-47.0); Hemoglobin 10.2 g/dL (11.5-15.3); Lymphocytes # 1.3 10^3/uL (0.8-4.8); Lymphocytes % 21.6 %; Mean Corpuscular HGB Conc 32.4 g/dL (30.0-36.0); Mean Corpuscular Hemoglobin 31.3 pg (28.0-34.0); Mean Corpuscular Volume 96.6 fl (81-99); Mean Platelet Volume 9.2 fL (7.4-10.4); Monocytes # 0.6 10^3/uL (0.2-0.9); Monocytes % 10.4 %; Neutrophils % 59.7 %; Nucleated Red Blood Cells % 0 %; Platelet Count 273 10^3/cmm (130-400); Red Blood Count 3.26 10^6/uL (4.1-5.3); Red Cell Distribution Width 13.5 % (12.1-15.1); White Blood Count 5.9 10^3/uL (4.0-10.0)
[2022-08-29 19:28] LABS: Troponin(5th) Baseline 22 ng/L (0-10)
[2022-08-29 19:37] LABS: Alanine Aminotransferase 14 U/L (0-33); Alkaline Phosphatase 153 U/L (35-105); Anion Gap 12.8 (5-19); Aspartate Amino Transferase 23 U/L (0-32); Blood Urea Nitrogen 36 mg/dL (8-23); Calcium 9.2 mg/dL (8.5-10.5); Carbon Dioxide 27 mmol/L (22-29); Chloride 92 mmol/L (98-107); Globulin 2.8 g/dL (1.3-4.6); Glucose 94 mg/dL (65-115); NT Pro B Type Natriuretic Pept 192 pg/mL (0-450); Osmolality Calculated 274 mOsm/kg (285-295); Potassium 3.8 mmol/L (3.5-5.1); Sodium 128 mmol/L (136-145); Total Bilirubin 0.2 mg/dL (0.15-1.2); Total Protein 6.8 g/dL (6.6-8.7)
--- NOTE | 2022-08-29 19:52 | ECG_ITS ---
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 Measurements Intervals [place] Rate: 88 P: 34 TX: 190 QRS: -12 QRSD: 110 T: 55 QT: 359 QTc: 435 Interpretive Statements SINUS RHYTHM INCOMPLETE RIGHT BUNDLE BRANCH BLOCK [90+ ms QRS DURATION, TERMINAL R IN V1/V2, 40+ ms S IN I/aVL/V4/V5/V6] Compared to ECG 08/29/2022 17:37:15 Sinus tachycardia no longer present Electronically Signed On 08-30-2022 22:08:56 CDT by Jeff Zimmer M.D. [id number]
[2022-08-29] MEDS: sodium chloride 0.9% 1,000 ML 999 ML IV (20:03)
[2022-08-29 21:17] LABS: Troponin 5 2HR 19.96 ng/L (0-10)
[2022-08-29 21:20] LABS: Troponin 5 2HR Delta -2.04 ABS# (0-10)
== END 2022-08-29 21:47 | disposition home or self-care (01) ==
PROVIDERS: Emergency Medicine; Emergency Provider Emergency Medicine; PCP Nurse Practitioner Family
DX: R07.9 Chest pain, unspecified (principal); I10 Essential (primary) hypertension
CPT/HCPCS: 36415; 71045; 80053; 83880; 84484; 85025; 93005; 93971; 96360; 99285; J7030

== ENCOUNTER → 2022-09-17 14:03 | Outpatient (BNVA) | payer MEDICARE, SELFPAY | PROVIDERS: PCP Nurse Practitioner Family; Visit Provider Nurse Practitioner Family | DX: Z96.652 Presence of left artificial knee joint (principal) | CPT/HCPCS: 73560; 73565; 99213 ==

== ENCOUNTER → 2023-11-22 09:51 | Outpatient (BNVA) | payer MEDICARE, SELFPAY | PROVIDERS: PCP Nurse Practitioner Family; Referring Provider Nurse Practitioner Family; Visit Provider Nurse Practitioner Family | DX: M79.605 Pain in left leg (principal); M54.32 Sciatica, left side | CPT/HCPCS: 72100; 73502 ==

== ENCOUNTER → 2023-12-07 13:25 | Outpatient (BNVA) | payer MEDICARE, SELFPAY | PROVIDERS: PCP Nurse Practitioner Family; Referring Provider Nurse Practitioner Family; Visit Provider Orthopaedic Surgery | DX: S22.089A Unspecified fracture of T11-T12 vertebra, initial encounter for closed fracture (principal); S32.019A Unspecified fracture of first lumbar vertebra, initial encounter for closed fracture; S32.029A Unspecified fracture of second lumbar vertebra, initial encounter for closed fracture; X58.XXXA Exposure to other specified factors, initial encounter | CPT/HCPCS: 99204 ==

== ENCOUNTER → 2023-12-21 15:20 | Outpatient (BNVA) | payer MEDICARE, SELFPAY | PROVIDERS: PCP Nurse Practitioner Family; Visit Provider Orthopaedic Surgery | DX: M48.062 Spinal stenosis, lumbar region with neurogenic claudication (principal) | CPT/HCPCS: 72100; 99214 ==

== ENCOUNTER → 2024-01-04 09:19 | Outpatient (BNVA) | payer MEDICARE, SELFPAY | PROVIDERS: PCP Nurse Practitioner Family; Visit Provider Anesthesiology Pain Medicine | DX: M48.062 Spinal stenosis, lumbar region with neurogenic claudication (principal) | CPT/HCPCS: 99204 ==

== ENCOUNTER → 2024-01-13 13:59 | Outpatient (BNVA) | payer MEDICARE, SELFPAY | PROVIDERS: PCP Nurse Practitioner Family; Visit Provider Anesthesiology Pain Medicine | DX: M54.16 Radiculopathy, lumbar region (principal); M48.062 Spinal stenosis, lumbar region with neurogenic claudication | CPT/HCPCS: 64483; 64484; J1100; J3490 ==

== ENCOUNTER 2024-02-06 10:13 | Emergency (ER) | payer MEDICARE, SELFPAY ==
[2024-02-06 10:37] VITALS: BP 94/61; PULSE 109; RESP 18; TEMP 36.3; O2SAT 92; BMI 25.0
--- NOTE | 2024-02-06 10:45 | XRR_ITS ---
PROCEDURE INFORMATION: Exam: XR Left Ankle Exam date and time: 02/06/2024 11:24 AM Age: 83 years old Clinical indication: Injury or trauma; Fall; Other: General pain; TECHNIQUE: Imaging protocol: Radiologic exam of the left ankle. Views: 3 or more views. COMPARISON: CR XR knee LT 3V* [id number] 02/06/2024 11:19 AM FINDINGS: Bones/joints: Enthesophytes are present off the os calcis at the Achilles insertion and plantar fascia origin. There is a normal accessory os trigonum accessory ossicle. There is minimal contour abnormality at the lateral aspect of the lateral malleolus and an adjacent punctate soft tissue ossification. Soft tissues: There is edema in the soft tissues. XR/XR ankle LT min 3V* [id number] IMPRESSION: 1. There is minimal contour abnormality at the lateral aspect of the lateral malleolus and an adjacent punctate soft tissue ossification. If there is suspicion for acute fracture at this location, CT scan of the ankle is recommended for further evaluation. 2. There is edema in the soft tissues.
--- NOTE | 2024-02-06 10:59 | XRR_ITS ---
PROCEDURE INFORMATION: Exam: XR Left Knee Exam date and time: 02/06/2024 11:19 AM Age: 83 years old Clinical indication: Injury or trauma; Fall; Other: General pain; Prior surgery; Surgery date: 6+ months; RT knee replacement; Trauma/fall TECHNIQUE: Imaging protocol: Radiologic exam of the left knee. Views: 3 views. COMPARISON: CR XR knees AP WB w LT lmt ORTH 09/17/2022 2:06 PM FINDINGS: Bones/joints: Total knee replacement. Distal femoral and proximal tibial components appear intact and in satisfactory alignment. Soft tissues: There are benign-appearing soft tissue calcifications. Vasculature: There are peripheral vascular calcifications. XR/XR knee LT 3V* [id number] IMPRESSION: No acute findings.Non acute findings as described above.
--- NOTE | 2024-02-06 10:59 | XRR_ITS ---
PROCEDURE INFORMATION: Exam: XR Bilateral Hips Exam date and time: 02/06/2024 11:04 AM Age: 83 years old Clinical indication: Injury or trauma; Fall; Other: General pain; Additional info: Trauma/fall TECHNIQUE: Imaging protocol: Radiologic exam of the bilateral hips. Views: 2 views of hips with pelvis when performed. COMPARISON: CR XR hip LT 2-3V wo/w pel* [id number] 11/22/2023 10:01 AM FINDINGS: Bones/joints: There are ill-defined fractures through the left superior and inferior pubic rami. Multi-articular primary osteoarthritic changes including joint space narrowing, subchondral cystic/sclerotic changes, and marginal osteophyte formations. Soft tissues: Edema and/or hematoma is present in the soft tissues adjacent to the fracture site. XR/XR hip BI 3-4V wo/w pel [id number] IMPRESSION: Ill-defined fractures through the left superior and inferior pubic rami.
--- NOTE | 2024-02-06 11:35 | W.ED.EXTPRO ---
HPI - Extremity Problem General: Chief complaint: Extremity Injury, Lower Stated complaint: fall, left hip and leg pain Time Seen by Provider: 02/06/24 10:58 History of Present Illness: 83-year-old female presents emergency department stating that she has left ankle left knee and left hip pain. She states that she had an accidental fall 2 days ago. She states she fell from a standing height to the floor she is able to stand and ambulate. She states that she is continued to have pain and states she has been taking Ultram which has helped but she wanted to come to the emergency department to be evaluated. She denies back or neck pain. She denies loss of consciousness or hitting her head. She denies numbness or tingling to the extremity. She states that her left hip is very painful when she stands but she is able to stand. Review of Systems General: Reports: 10 or more systems reviewed and unremarkable except in HPI and below Musc: Reports: extremity pain, extremity swelling and joint pain [facility] ED PFSH: Medical History Hypertension Social History Smoking and tobacco/nicotine status: never used tobacco/nicotine Alcohol intake: never Substance/Drug Use: never Physical Exam Narrative: EXAM NARRATIVE: Constitutional: the patient appears well nourished and with normal development. Vital signs reviewed as documented. HENMT: Normocephalic, atraumatic. External ears normal appearance without drainage. Nose without drainage, normal appearance. Mucus membranes moist. Neck is supple, No jugular venous distension, trachea is midline, no appreciable carotid bruits. No lymphadenopathy. No meningeal signs. Flexion, extension and lateral rotation is without pain. Eyes: Pupils are equal, round, reactive to light and accommodation. No scleral icterus. Extra-ocular movement are intact. Thorax is symmetrical and with equal rise and fall with respirations. Resp: Lungs are clear to auscultation. No wheezes, rales, crackles or ronchi at present. Cardio: Regular rate and rhythm. Positive S1, S2. No appreciable murmurs, rubs or gallops. GI: Abdominal exam reveals normal bowel sounds to all quadrants. No organomegaly. No obvious palpable masses noted. No hepatomegally appreciated. Soft, non-tender to palpation. Extremity: Extremities are non-edematous and both femoral and pedal pulses are 2+ and equal bilaterally. Moves all extremities well, sensation in all extremities. Tenderness to palpation to the left greater trochanter area into the left gluteal region. There is a small area of bruising noted. Patient's left knee is without difficulty or obvious signs of trauma. She has no difficulty with flexion or extension. Palpation to the medial and lateral aspects of the knee are without pain. There is no obvious crepitus to the knee. Left ankle dorsiflexion and plantarflexion are intact. Inversion and eversion are intact without difficulty. She is nontender to the medial and lateral malleolus. She does have trace edema to the lower extremities bilaterally. Neuro: Alert and oriented x4, person, place, time and situation. Cranial nerves II through XII are grossly intact, there is no focal neurological deficits that I can appreciate at present. Sensation intact to all extremities. 2-point discrimination intact. Light touch intact to all extremities. Motor strength in the upper and lower extremities are equal and bilateral 5/5. Psych: Cooperative, calm, normal thought process, appropriate judgment. Skin: No lesions, rashes. No gross abnormalities noted. Back: Symmetrical, no obvious deformity, No CVA tenderness Course Vital Signs: Vital signs: Vital Signs Temperature 97.4 F L 02/06/24 12:50 Pulse Rate 112 H 02/06/24 12:50 Respiratory Rate 16 02/06/24 12:50 Blood Pressure 105/71 02/06/24 12:50 Pulse Oximetry 96 02/06/24 12:50 Oxygen Delivery Me thod Room Air 02/06/24 12:26 MDM - Extremity (Nontraumatic) Medical Decision Making Physical exam completed and documented I did obtain radiographic examination of the left knee, left ankle, and left hip without obvious acute deformity or fracture. I did provide the patient Solu-Medrol corticosteroid and Toradol for her pain. I will provide her written prescriptions for [place]. Medical Records I reviewed the patient's medical records. Lab Data Radiology Impressions Ankle X-Ray 02/06/24 10:45 IMPRESSION: 1. There is minimal contour abnormality at the lateral aspect of the lateral malleolus and an adjacent punctate soft tissue ossification. If there is suspicion for acute fracture at this location, CT scan of the ankle is recommended for further evaluation. 2. There is edema in the soft tissues. Hip/Pelvis X-Ray 02/06/24 10:59 IMPRESSION: Ill-defined fractures through the left superior and inferior pubic rami. Knee X-Ray 02/06/24 10:59 IMPRESSION: No acute findings.Non acute findings as described above. All radiology interpretation(s) finalized by discharge Discharge Plan Discharge Patient Disposition: Home Clinical Impression: Acute pain of left hip, Acute pain of left knee, Contusion of ankle or foot, left, Acute left ankle pain Closed fracture of superior pubic ramus Qualifiers: Encounter type: initial encounter Laterality: left Qualified Code(s): S32.512A - Fracture of superior rim of left pubis, initial encounter for closed fracture Accidental fall Qualifiers: Encounter type: initial encounter Qualified Code(s): W19.XXXA - Unspecified fall, initial encounter Contusion of hip, left Qualifiers: Encounter type: initial encounter Qualified Code(s): S70.02XA - Contusion of left hip, initial encounter Inferior pubic ramus fracture Qualifiers: Encounter type: initial encounter Fracture type: closed Laterality: left Qualified Code(s): S32.592A - Other specified fracture of left pubis, initial encounter for closed fracture Condition: Stable Prescriptions: New tramadol 50 mg tablet 50 mg PO Q12H PRN (Reason: pain) Qty: 14 0RF No Action tramadol 50 mg tablet 50 mg PO Q6H PRN (Reason: Pain) lisinopril-hydrochlorothiazide 20-25 mg tablet 1 tab PO QAM ergocalciferol (vitamin D2) 1,250 mcg (50,000 unit) capsule 50,000 unit PO Q7D magnesium oxide 400 mg magnesium Tablet 400 mg PO DAILY PRN (Reason: unknown) Discharge Orders: Discharge ED (Routine); Ordered 02/06/24 Ordered By: Wesley Lizarraga Referrals: Benjamin Aguillon DO [Physician] - Lia Quiñonez [Primary Care Provider] - Discharge Diet: Usual diet Discharge Activity: Limit activity as instructed Patient Instructions: Opioid Safety, Pain Management Activity Restrictions/Additional Instructions: Activity Restrictions/Additional Instructions: Thank you for choosing [facility] for your healthcare needs today. Please realize that you were seen in the Emergency Department and that we are providing you with an emergency medical screening exam and this may not be a complete and all inclusive of all the testing and or medical work-up that you may need to determine your ailment or severity of your illness. It is very important that you follow-up as instructed with your Primary care provider or Specialist for additional evaluation and to discuss your medical treatment plan. You may return to the Emergency Department should you have concerns or if your condition changes or worsens in any way. Coding Level of Care Code ED [facility] Justice for Levi Nava
[2024-02-06] MEDS: methylPREDNISolone sod succ 125 mg/2 mL INJ 60 MG IM (11:49)
[2024-02-06] MEDS: ketorolac 30 mg/mL INJ IM (11:49)
[2024-02-06 12:26] VITALS: BP 105/71; PULSE 112; RESP 16; O2SAT 96
[2024-02-06 12:50] VITALS: BP 105/71; PULSE 112; RESP 16; TEMP 36.3; O2SAT 96
== END 2024-02-06 12:51 | disposition home or self-care (01) ==
PROVIDERS: Emergency Provider Internal Medicine; PCP Nurse Practitioner Family
DX: S32.592A Other specified fracture of left pubis, initial encounter for closed fracture (principal); S32.512A Fracture of superior rim of left pubis, initial encounter for closed fracture; S70.02XA Contusion of left hip, initial encounter; S90.02XA Contusion of left ankle, initial encounter; S90.32XA Contusion of left foot, initial encounter; M25.562 Pain in left knee; I10 Essential (primary) hypertension; W18.39XA Other fall on same level, initial encounter
CPT/HCPCS: 73522; 73562; 73610; 96372; 99284; J1885; J2930